=== PATIENT | female | born 1980 | race Caucasian/White ===

== ENCOUNTER 2019-05-22 05:56 | Day surgery (SDC) | payer MEDICAID ==
[2019-05-17 11:17] LABS: BASOPHILS % (AUTO) 0.2 % (0.0-2.0); EOSINOPHILS # (AUTO) 0.1 K/uL (0-0.4); HEMATOCRIT 37.7 % (36-48); HEMOGLOBIN 12.2 g/dL (12.0-16.0); LYMPHOCYTES # (AUTO) 2.4 K/uL (2.5-16.5); LYMPHOCYTES % (AUTO) 45.8 % (20.5-51.1); MEAN CORPUSCULAR HEMOGLOBIN 27 pg (27-31); MEAN CORPUSCULAR HGB CONC 32 g/dL (33-37); MEAN CORPUSCULAR VOLUME 85.1 fL (80-94); MONOCYTES # (AUTO) 0.5 K/uL (0.8-1.0); MONOCYTES % (AUTO) 8.7 % (1.7-9.3); NEUTROPHILS # (AUTO) 2.3 K/uL (1.8-7.7); NEUTROPHILS % (AUTO) 44.3 % (42.2-75.2); PLATELET COUNT (AUTO) 324 K/uL (140-450); RED BLOOD CELL COUNT(AUTO) 4.43 MIL/uL (4.20-5.40); RED CELL DISTRIBUTION WIDTH 13.8 % (11.6-13.7); WHITE BLOOD COUNT (AUTO) 5.3 K/uL (4.8-10.8)
[2019-05-17 12:01] LABS: POTASSIUM 3.6 mmol/L (3.5-5.1)
[2019-05-17 12:02] LABS: CARBON DIOXIDE 28.6 mmol/L (21-32); CREATININE 0.7 mg/dL (0.6-1.3)
[2019-05-17 12:07] LABS: ALBUMIN 3.6 g/dL (3.4-5.0); TOTAL BILIRUBIN 0.2 mg/dL (0.0-1.0)
[~2019-05-22] VITALS: Ht 162.6 cm; Wt 89.8 kg
[~2019-05-22 05:56] MED LIST: IBUP-1842 PO
[2019-05-22] MEDS ORDERED: BUPIVACAINE-MPF 0.25% 30 ML VIAL INJ ONE (07:26)
[2019-05-22] MEDS ORDERED: GLYCOPYRROLATE 0.2 MG/ML VIAL ONE (07:36)
[2019-05-22] MEDS ORDERED: MIDAZOLAM 2 MG/2 ML VIAL ONE (07:36)
[2019-05-22] MEDS ORDERED: LIDOCAINE 2% 100 MG/5 ML SYR IVP ONE (07:36)
[2019-05-22] MEDS ORDERED: DEXAMETHASONE 4 MG/ML VIAL ONE (07:36)
[2019-05-22] MEDS ORDERED: KETOROLAC 30 MG/ML VIAL ONE (07:36)
[2019-05-22] MEDS ORDERED: DESFLURANE 240 ML BTL INH ONE (07:36)
[2019-05-22] MEDS ORDERED: NEOSTIGMINE 1:1000 10 MG/10 ML VIAL ONE (07:36)
[2019-05-22] MEDS ORDERED: ONDANSETRON 4 MG/2 ML VIAL ONE (07:36)
[2019-05-22] MEDS ORDERED: PROPOFOL 200 MG/20 ML VIAL IV ONE (07:36)
[2019-05-22] MEDS ORDERED: fentaNYL 0.05 MG/ML VIAL ONE (07:36)
[2019-05-22] MEDS ORDERED: ROCURONIUM 50 MG/5 ML VIAL IV ONE (07:36)
[2019-05-22] MEDS ORDERED: SUCCINYLCHOLINE CHLORIDE 200 MG/10 ML VIAL IVP ONE (07:36)
[2019-05-22] MEDS ORDERED: ONDANSETRON 4 MG/2 ML VIAL IVP PRN (09:00)
[2019-05-22] MEDS ORDERED: HYDROmorphone 1 MG/ML AMP IVP PRN (09:00)
== END 2019-05-22 10:43 | disposition home or self-care (01) ==
LOC: MOR 05:56 → MMU 06:05 → MOR 10:43
PROVIDERS: ATTEND Obstetrics & Gynecology
DX: Z30.2 Encounter for sterilization (principal); E66.9 Obesity, unspecified
CPT/HCPCS: 36415; 58670; 80053; 81025; 85025; J0330; J1100; J1885; J2001; J2250; J2405; J2704; J2710; J3010; J3490; J7120